=== PATIENT | female | born 1990 | race Two or more races ===

== ENCOUNTER 2019-11-19 14:56 | Outpatient (CLI) | payer OTHER | END 2019-11-19 16:00 | disposition home or self-care (01) | LOC: NST 14:56 | DX: Z34.83 Encounter for supervision of other normal pregnancy, third trimester (principal) ==

== ENCOUNTER 2019-11-19 16:05 | Inpatient (IN) | payer OTHER ==
[~2019-11-19] VITALS: Ht 177.8 cm; Wt 117.9 kg
[2019-11-24] MEDS ORDERED: SYNTHROID125 MCG PO (07:35)
[2019-11-24] MEDS ORDERED: PRENATAL TABLE1 EAC1 PO (07:37)
[2019-11-24] MEDS ORDERED: FOLIC ACID0.4 MG PO (07:39)
== END 2019-11-27 15:50 | disposition home or self-care (01) | DRG 807 ==
LOC: LDR 11-24 06:18 → OB/GYN 11-24 12:00
PROVIDERS: ADMIT Obstetrics & Gynecology
PROC: 10907ZC Drainage of Amniotic Fluid, Therapeutic from Products of Conception, Via Natural or Artificial Opening (ICD-10-PCS; 2019-11-24)
PROC: 3E0P7VZ Introduction of Hormone into Female Reproductive, Via Natural or Artificial Opening (ICD-10-PCS; 2019-11-24)
PROC: 3E033VJ Introduction of Other Hormone into Peripheral Vein, Percutaneous Approach (ICD-10-PCS; 2019-11-24)
PROC: 4A1HXCZ Monitoring of Products of Conception, Cardiac Rate, External Approach (ICD-10-PCS; 2019-11-24)
PROC: 10E0XZZ Delivery of Products of Conception, External Approach (ICD-10-PCS; principal; 2019-11-25)
PROC: 0HQ9XZZ Repair Perineum Skin, External Approach (ICD-10-PCS; 2019-11-25)
DX: O70.0 First degree perineal laceration during delivery (principal); Z37.0 Single live birth; Z3A.40 40 weeks gestation of pregnancy